=== PATIENT | female | born 1995 | race Caucasian/White ===

== ENCOUNTER 2021-03-18 18:59 | Emergency (ER) | payer OTHER, SELFPAY ==
[2021-03-18 19:28] VITALS: BP 138/75; PULSE 93; RESP 18; TEMP 36.8; O2SAT 97; BMI 50.5
--- NOTE | 2021-03-18 19:28 | XR_ITS ---
PROCEDURE INFORMATION: Exam: XR Left Wrist Exam date and time: 03/18/21 07:28 PM Age: 26 years old Clinical indication: Patient HX: Left wrist pain, pain when turning wrist, no known injury other than just wear and tear from work TECHNIQUE: Imaging protocol: XR Left wrist. Views: 3 or more views. COMPARISON: No relevant prior studies available. FINDINGS: Bones/joints: Normal. Soft tissues: Normal. IMPRESSION: No acute findings.
--- NOTE | 2021-03-18 19:41 | [facility].EDEXTP ---
ED Disposition Clinical Impression: Paresthesias in left hand Carpal tunnel syndrome Qualifiers: Laterality: left Qualified Code(s): G56.02 - Carpal tunnel syndrome, left upper limb Disposition: Home, Self-Care Condition on Discharge: Good Instructions: DI for Carpal Tunnel Syndrome Prescriptions: Ibuprofen [Ibuprofen 800mg Tablet] 800 mg PO TIDP PRN #20 tab PRN Reason: Moderate Pain [facility] methocarbamoL [Methocarbamol 500mg Tablet] 1,000 mg PO TID 7 Days #42 tab Transmission Status: Pending to [facility] Referrals: Provider,MD Diamond [Primary Care Provider] - Mora Tatum MD [Physician] - - Critical Care Critical Care Time: No Attestation: On 03/18/21, the high probability of a clinically significant, sudden or life threatening deterioration of the following system(s) required my full and direct attention, intervention and personal management. The time I documented below is in addition to time spent performing reported procedures but includes the following listed in this critical care notation. Medical Decision Making - Medical Records Medical records reviewed: Yes: I reviewed the patient's medical records. - Alberto Inquiry Pt receiving controlled substance: No Vital Signs: 03/18/21 19:28 Temperature 98.2 F Temperature Source Oral Pulse Rate [Right] 93 H Respiratory Rate 18 Blood Pressure [Right Arm] 138/75 Blood Pressure Mean [Right Arm] 96 Blood Pressure Source [Right Arm] Automatic Cuff Blood Pressure Position [Right Arm] Sitting 02 Sat by Pulse Oximetry 97 Oxygen Delivery Method Room Air Orders (Tests/Meds): ED MEDICATIONS Discontinued Medications Generic Name Dose Route Start Last Admin Trade Name Freq PRN Reason Stop Dose Admin Ketorolac Tromethamine 30 mg 03/18/21 19:28 03/18/21 19:50 Ketorolac 30mg/Ml Vial IM 03/18/21 19:29 30 mg ONCE ONE Administration ORDERS Category Date Time Status Wrist XR left minimum 3 views [XR wrist LT min 3V] Stat Exams 03/18/21 19:28 Taken - Radiology Data #1 Image(s): Wrist Image Reviewed: Yes I reviewed the patient's radiology results, Yes I reviewed the patient's radiology image Preliminary Findings: Normal/NAD, No Fracture Seen - Reevaluation(s) Time: 19:53 Reevaluation #1: On reevaluation, the patient is feeling better. No obvious deformity on x-ray. Patient will be given follow-up. She will be given a short course of muscle relaxer and anti-inflammatories. Patient given strict return precautions. Verbalized understanding. Medical Decision Narrative: Is a 26-year-old female presenting with paresthesias to the left hand. Findings are consistent with carpal tunnel syndrome. The patient has a positive Phalen's test as well. There is no obvious deformity. Range of motion is intact. Imaging will be obtained. Patient treated symptomatically. Extremity Problem HPI - General Chief complaint: Extremity Problem,Nontraumatic Stated complaint: Left numbness,pain Time Seen by Provider: 03/18/21 19:35 Mode of Arrival: Ambulatory Limitations: No Limitations Description of Symptoms (Recalled from ER Triage Doc. by RN): Pt states her left hand and wrist started hurting yesterday worse with ROM radiates up to her shoulder. Pt states she thinks she has Carpal Tunnel. Pt denies injury to the area. No edema or discoloration to area. - History of Present Illness HPI Narrative: 26-year-old female presented to the emergency department with some numbness and tingling in her left hand. The patient has had this for quite some time. She states it has been getting worse over the last few days. She states that the numbness and tingling originates from her mid forearm and radiates down her fingers. She denies any injury, however she does have repetitive stress at work. She feels like she flexes and extends her wrist quite frequently while she is
[2021-03-18 20:06] VITALS: BP 129/79; PULSE 90; RESP 16; TEMP 36.8; O2SAT 97
== END 2021-03-18 20:07 | disposition home or self-care (01) ==
PROVIDERS: Emergency Provider Emergency Medicine
DX: G56.02 Carpal tunnel syndrome, left upper limb (principal)
CPT/HCPCS: 73110; 96372; 99282